=== PATIENT | female | born 1950 | race Caucasian/White ===

== ENCOUNTER 2023-01-10 08:33 | Outpatient (CLI) | payer MEDICARE, OTHER ==
[2023-01-10] MEDS ORDERED: Magnevist 469MG/ML 20 ML VIAL ONE (09:28)
== END 2023-01-10 08:34 | disposition home or self-care (01) ==
LOC: CSHMRI 08:33
PROVIDERS: ATTEND Psychiatry & Neurology Neurology
DX: R25.1 Tremor, unspecified (principal); Z86.73 Personal history of transient ischemic attack (TIA), and cerebral infarction without residual deficits; G93.89 Other specified disorders of brain
CPT/HCPCS: 70553